=== PATIENT | male | born 1935 | race Caucasian/White ===

== ENCOUNTER 2017-08-27 19:56 | Emergency (ER) | payer MEDICARE | END 2017-08-27 21:04 | disposition left against medical advice (07) | LOC: ERS 19:56 | DX: Z53.21 Procedure and treatment not carried out due to patient leaving prior to being seen by health care provider (principal) ==

== ENCOUNTER 2017-09-02 13:36 | Outpatient (CLI) | payer MEDICARE | END 2017-09-02 13:37 | disposition home or self-care (01) | LOC: BICCT 13:36 | PROVIDERS: ATTEND Internal Medicine | DX: R07.81 Pleurodynia (principal) | CPT/HCPCS: 72128 ==

== ENCOUNTER 2017-09-08 14:16 | Outpatient (CLI) | payer MEDICARE | END 2017-09-08 14:17 | disposition home or self-care (01) | LOC: BICULT 14:16 | PROVIDERS: ATTEND Internal Medicine | DX: E04.2 Nontoxic multinodular goiter (principal) | CPT/HCPCS: 76536 ==

== ENCOUNTER 2021-06-12 15:25 | Outpatient (CLI) | payer MEDICARE | END 2021-06-12 15:26 | disposition home or self-care (01) | LOC: BICRAD 15:25 | PROVIDERS: ATTEND Internal Medicine | DX: M54.2 Cervicalgia (principal); M47.812 Spondylosis without myelopathy or radiculopathy, cervical region | CPT/HCPCS: 72040 ==

== ENCOUNTER 2021-07-29 12:24 | Outpatient (CLI) | payer MEDICARE | END 2021-07-29 12:25 | disposition home or self-care (01) | LOC: BICRAD 12:24 | PROVIDERS: ATTEND Internal Medicine | DX: R07.81 Pleurodynia (principal) ==